=== PATIENT | female | born 2000 | race Caucasian/White ===

== ENCOUNTER 2025-07-01 22:55 | Emergency (ER) | payer MEDICAID, OTHER ==
[~2025-07-01] VITALS: Ht 177.8 cm; Wt 90.0 kg
[2025-07-01 22:58] VITALS: BP 154/93; PULSE 133; RESP 16; TEMP 37.3; O2SAT 99
== END 2025-07-01 23:46 | disposition left against medical advice (07) ==
LOC: ER 22:55
DX: T38.3X1A Poisoning by insulin and oral hypoglycemic [antidiabetic] drugs, accidental (unintentional), initial encounter (principal); Z79.899 Other long term (current) drug therapy; Y92.89 Other specified places as the place of occurrence of the external cause
CPT/HCPCS: 82962; 93005; 99281